=== PATIENT | male | born 1995 | race Caucasian/White ===

== ENCOUNTER 2016-08-26 19:26 | Emergency (ER) | payer OTHER ==
[2016-08-26] MEDS ORDERED: SODIUM CHLORIDE 0.9% 1,000 ML ONE (22:57)
== END 2016-08-27 05:23 ==
LOC: ER 19:26
DX: F23 Brief psychotic disorder (principal); T14.91 Suicide attempt; Z79.899 Other long term (current) drug therapy; F17.210 Nicotine dependence, cigarettes, uncomplicated
CPT/HCPCS: 36415; 71020; 80053; 80307; 80320; 80329; 81001; 83605; 84439; 84443; 85025; 87040; 93005; 96360